=== PATIENT | male | born 1975 | race African-American/Black ===

== ENCOUNTER → 2018-05-18 | Outpatient (CLI) | payer OTHER | END | disposition home or self-care (01) | LOC: RT 08:47 | DX: G43.909 Migraine, unspecified, not intractable, without status migrainosus (principal); R56.9 Unspecified convulsions | CPT/HCPCS: 95816 ==

== ENCOUNTER → 2018-05-21 | Outpatient (CLI) | payer OTHER ==
[2018-05-21] MEDS: GADOBUTROL 10 MMOL/10 ML VIAL IV (12:55)
== END | disposition home or self-care (01) ==
LOC: MRI 10:39
DX: G43.909 Migraine, unspecified, not intractable, without status migrainosus (principal); R56.9 Unspecified convulsions; Z87.828 Personal history of other (healed) physical injury and trauma
CPT/HCPCS: 70553; A9585